=== PATIENT | female | born 1955 | race Caucasian/White ===

== ENCOUNTER → 2017-03-21 | Outpatient (CLI) | payer OTHER | LOC: FIMAGING 12:45 | PROVIDERS: ATTEND Internal Medicine | DX: Z12.31 Encounter for screening mammogram for malignant neoplasm of breast (principal) | CPT/HCPCS: G0202 ==

== ENCOUNTER 2017-09-04 13:33 | Emergency (ER) | payer OTHER ==
--- NOTE | 2017-09-04 13:51 | EDPHY ---
H & P Stated Complaint: CHEST TIGHTNESS YESTERDAY/INCREASED STRESSORS AT WORK Time Seen by Provider: 09/04/17 13:51 HPI/ROS: CHIEF COMPLAINT: Chest tightness HISTORY OF PRESENT ILLNESS: The patient presents the ED with a 2 day history of intermittent chest tightness. The patient reports she has been under increasing stress at work. She reports a sensation that she needs to breathe deeply to resolve her symptoms. The patient has no risk factors for coronary artery disease. She has no history of exertional chest pain or shortness of breath. The patient denies pleuritic chest pain. The patient denies fever, cough or congestion. The patient does not smoke. There are no family members to have coronary artery disease. REVIEW OF SYSTEMS: A comprehensive 10 point review of systems is otherwise negative aside from elements mentioned in the history of present illness. Source: Patient - Personal History Current Tetanus Diphtheria and Acellular Pertussis (TDAP): Yes - Medical/Surgical History Hx Asthma: Yes Hx Chronic Respiratory Disease: No Hx Diabetes: No Hx Cardiac Disease: No Hx Renal Disease: No Hx Cirrhosis: No Hx Alcoholism: No Hx HIV/AIDS: No Hx Splenectomy or Spleen Trauma: No Other PMH: DENIES - Social History Smoking Status: Never smoked - Physical Exam Exam: General Appearance: Alert, no distress Eyes: Pupils equal and round no pallor or injection ENT, Mouth: Mucous membranes moist Respiratory: There are no retractions, lungs are clear to auscultation Cardiovascular: Regular rate and rhythm Gastrointestinal: Abdomen is soft and nontender, no masses, bowel sounds normal Neurological: 5/5 strength all 4 extremities Skin: Warm and dry, no rashes Musculoskeletal: Neck is supple nontender Extremities: symmetrical, full range of motion Constitutional: Initial Vital Signs Temperature (C) 36.6 C 09/04/17 13:41 Heart Rate 78 09/04/17 13:41 Respiratory Rate 18 09/04/17 13:41 Blood Pressure 135/94 H 09/04/17 13:41 O2 Sat (%) 96 09/04/17 13:41 O2 Delivery Mode Room Air Allergies/Adverse Reactions: Sulfa (Sulfonamide Antibiotics) Allergy (Verified 09/04/17 13:41) Home Medications: Medication Instructions Recorded NK [No Known Home Meds] 09/04/17 Medical Decision Making - Diagnostics EKG Interpretation: EKG: Complete interpretation has been separately recorded in the [employer] archive. Summary impression: Sinus rhythm Imaging Results: Imaging Impressions Chest X-Ray 09/04/17 13:51 Impression: Excellent inspiration. Otherwise unremarkable. ED Course/Re-evaluation: The patient presents the ED with 2 days of atypical chest pain in the setting of increased stress at work. The patient has no risk factors for coronary artery disease. Her workup in the emergency department demonstrates a normal EKG without ischemic changes, a negative troponin and unremarkable chest x-ray. The patient has no historical features suggestive of pulmonary embolism. I discussed with the patient the workup and the fact she is felt to be low risk for coronary artery disease. She does understand that we cannot fully exclude this diagnosis. She is comfortable following up with Cardiology as an outpatient for consideration of a treadmill stress test. She is discharged home with customary aftercare instructions and return precautions. Differential Diagnosis: Differential diagnosis considered includes acute coronary syndrome, esophageal spasm, aortic dissection, arrhythmia, anxiety reaction - Data Points Laboratory Results: Laboratory Results 09/04/17 13:52 09/04/17 13:52 09/04/17 09/04/17 09/04/17 13:55 13:52 13:52 WBC 4.80 10^3/uL 10^3/uL (3.80-9.50) RBC 4.41 10^6/uL 10^6/uL (4.18-5.33) Hgb 14.1 g/dL g/dL (12.6-16.3) Hct 42.5 % % (38.0-47.0) MCV 96.4 fL fL (81.5-99.8) MCH 32.0 pg pg (27.9-34.1) MCHC 33.2 g/dL g/dL (32.4-36.7) RDW 13.3 % % (11.5-15.2) Plt Count 205 10^3/uL 10^3/uL (150-400) MPV 9.9 fL fL (8.7-11.7) Neut % (Auto) Pending Lymph % (Auto) Pending Nelson % (Auto) Pending Eos % (Auto) Pending Baso % (Auto) Pending Nucleat RBC Rel Count Pending Absolute Neuts (auto) Pending Absolute Lymphs (auto) Pending Absolute Monos (auto) Pending Absolute Eos (auto) Pending Absolute Basos (auto) Pending Absolute Nucleated RBC Pending Immature Gran % Pending Immature Gran # Pending Platelet Estimate Pending Sodium 140 mEq/L mEq/L (135-145) Potassium 4.2 mEq/L mEq/L (3.3-5.0) Chloride 103 mEq/L mEq/L (97-110) Carbon Dioxide 27 mEq/l mEq/l (22-31) Anion Gap 10 mEq/L mEq/L (8-16) BUN 11 mg/dL mg/dL (7-23) Creatinine 0.7 mg/dL mg/dL (0.6-1.0) Estimated GFR > 60 Glucose 85 mg/dL mg/dL (70-100) Calcium 9.4 mg/dL mg/dL (8.5-10.4) POC Troponin I 0.00 ng/mL ng/mL (0.00-0.08) Point of Care Test Results: Chemistry 09/04/17 13:55 POC Troponin I 0.00 ng/mL ng/mL (0.00-0.08) Departure - Departure Disposition: Home, Routine, Self-Care Clinical Impression: Chest pain Condition: Good Instructions: Chest Pain (ED) Additional Instructions: 1. Based upon the testing done in the Emergency Department today we see no evidence of a heart attack. 2. We are unable to fully exclude coronary artery disease based upon the testing available in the Emergency Department. 3. For this reason, we would like you to be seen by cardiology for consideration of additional testing within the next 3 days. 4. Please contact the investment sales assistant, Dr. Katharina Ballard, you have been referred to schedule this appointment as soon as possible. Their offices are typically open from 8:30am-5pm M-F. 5. Please return to the Emergency Department immediately for any recurrent chest pain, difficulty breathing or other concerns. Referrals: Natali Marie MD [Primary Care Provider] - As per Instructions Katharina Ballard MD [Medical Doctor] - As per Instructions
--- NOTE | 2017-09-04 13:54 | CPEKG ---
Heart Rate: 71 RR Interval: 845 P-R Interval: 164 QRSD Interval: 84 QT Interval: 396 QTC Interval: 431 P Lumpkin: 64 QRS [place]kin: 28 T Wave [place]: 39 EKG Severity - NORMAL ECG - EKG Impression: SINUS RHYTHM Electronically Signed By: Damon Rivera 04-Sep-2017 16:44:57
[2017-09-04 14:01] LABS: PLATELET COUNT 205 10^3/uL (150-400)
[2017-09-04 14:47] VITALS: BP 115/74
== END 2017-09-04 14:49 | disposition home or self-care (01) ==
DX: R07.9 Chest pain, unspecified (principal); J45.909 Unspecified asthma, uncomplicated
CPT/HCPCS: 84484-PO

== ENCOUNTER → 2018-05-12 | Outpatient (CLI) | payer OTHER | LOC: FIMAGING 10:48 | PROVIDERS: ATTEND Internal Medicine | DX: Z12.31 Encounter for screening mammogram for malignant neoplasm of breast (principal); Z80.3 Family history of malignant neoplasm of breast ==